=== PATIENT | male | born 1985 | race Two or more races ===

== ENCOUNTER 2020-10-15 08:59 | Inpatient (IN) | payer OTHER, MEDICAID ==
[~2020-10-15] VITALS: Ht 167.6 cm; Wt 124.0 kg
--- NOTE | 2020-10-15 09:26 | NUR ---
INITINAL CONTACT WITH PT: PT W/C/ N/V/D and stomach pain x3 days. Subjective fever and chills last night. STEADY GAIT TO BED. ATTACHED TO MONITORS. VSS. APRIL. DR. ROWE EVALUATED.
[2020-10-15] MEDS ORDERED: ONDANSETRON 2MG/ML, 2ML ONE (09:28)
[2020-10-15] MEDS ORDERED: SODIUM CHLORIDE FLUSH 10ML SYR IVF ONE (09:30)
[2020-10-15] MEDS ORDERED: SODIUM CHLORIDE 0.9% 1,000ML IVBOLUS ONE ×2 (09:30→11:30)
[2020-10-15] MEDS ORDERED: ONDANSETRON 2MG/ML, 2ML IVPush ONE (09:30)
[2020-10-15 09:40] LABS: MEAN CORPUSCULAR HEMOGLOBIN 30.2 pg (27.5-34.5); MEAN CORPUSCULAR HGB CONC 34.6 g/dL (33.2-36.2); MEAN PLATELET VOLUME 7.9 fL (7.4-10.4); PLATELET COUNT 227 x10^3/uL (130-400); RED BLOOD COUNT 5.65 x10^6/uL (4.38-5.82); RED CELL DISTRIBUTION WIDTH 13.8 % (9.4-14.8)
[2020-10-15 09:44] LABS: ALBUMIN 4.1 g/dL (3.4-5.0); ANION GAP 8 mmol/L (5-15); CHLORIDE 105 mmol/L (98-107)
[2020-10-15 09:49] LABS: ALANINE AMINOTRANSFERASE 37 U/L (12-78); ALKALINE PHOSPHATASE 89 U/L (45-117); BILIRUBIN,TOTAL 0.8 mg/dL (0.2-1.0); CREATININE 1.05 mg/dL (0.7-1.3); TOTAL PROTEIN 8.3 g/dL (6.4-8.2)
[2020-10-15 09:56] LABS: MICROSCOPIC INDICATED
[2020-10-15 10:08] LABS: <PLATELET ESTIMATE> ADEQUATE; <PLT MORPHOLOGY> NORMAL PLT MORPH; <RBC MORPHOLOGY> NORMAL; BAND#(MANUAL) 6.32 x10^3/uL; BANDS%(MANUAL) 34 % (0-7); LYMPH#(MANUAL) 0.93 x10^3/uL (1-3.4); LYMPHS% (MANUAL) 5 % (22-44); MONOS#(MANUAL) 0.56 x10^3/uL (0.3-2.7); MONOS% (MANUAL) 3 % (2-9); SEG#(MANUAL) 10.79 x10^3/uL (1.8-6.8); SEGS% (MANUAL) 58 % (42-75)
--- NOTE | 2020-10-15 11:26 | NUR ---
PT UP TO BATHROOM WITH STEADY GAIT. BACK TO BED. VSS. NADN. PT MEDICATED PER EMAR. STOOL WALKED DOWN TO LAB.
--- NOTE | 2020-10-15 11:55 | NUR ---
PT TO CT.
[2020-10-15] MEDS ORDERED: OMNIPAQUE 350 MG/ML, 100ML BOTTLE ONE ×3 (12:14→23:35)
[2020-10-15] MEDS ORDERED: KETOROLAC 30 MG/1 ML ONE (12:24)
[2020-10-15] MEDS ORDERED: KETOROLAC 30 MG/1 ML IVPush ONE (12:30)
[2020-10-15] MEDS ORDERED: CEFTRIAXONE 1,000 MG in DEXTROSE 5% 50 ML IVPB ONE (13:00)
[2020-10-15] MEDS ORDERED: METRONIDAZOLE PMX 500MG/100ML 100 ML ONE (13:06)
[2020-10-15] MEDS ORDERED: ACETAMINOPHEN 500 MG TABLET PO ONE (13:30)
[2020-10-15] MEDS ORDERED: MORPHINE SULFATE 4 MG/ML, 1ML IVPush ONE (13:30)
[2020-10-15] MEDS ORDERED: ACETAMINOPHEN 500 MG TABLET ONE (13:31)
[2020-10-15 13:56] LABS: CLOSTRIDIUM DIFFICILE ANTIGEN NEGATIVE; CLOSTRIDIUM DIFFICILE TOXIN NEGATIVE (Negative); CRYPTOSPORIDIUM ANTIGEN Negative (Negative)
[2020-10-15] MEDS ORDERED: METRONIDAZOLE PMX 500MG/100ML 100 ML IV ONE (14:00)
[2020-10-15] MEDS ORDERED: ONDANSETRON 2MG/ML, 2ML IVPush PRN (14:30)
[2020-10-15] MEDS ORDERED: ONDANSETRON ODT 4 MG PO PRN (14:30)
[2020-10-15] MEDS ORDERED: LABETALOL 5MG/ML, 20ML IVPush PRN (14:30)
[2020-10-15] MEDS ORDERED: GUAIFENESIN/DM 200-20MG, 10ML UDC PO PRN (14:30)
[2020-10-15 14:55] VITALS: BP 131/85
[2020-10-15] MEDS ORDERED: ENALAPRILAT 1.25 MG/ML, 2ML IVPush PRN (15:00)
[2020-10-15] MEDS: HYDROcodone/APAP 5/325 TABLET PO PRN ×2 (15:04→21:49)
[2020-10-15] MEDS: SODIUM CHLORIDE 0.9% 1,000 ML IV SCH ×2 (15:10→22:58)
[2020-10-15] MEDS: METRONIDAZOLE PMX 500MG/100ML 100 ML IV SCH ×2 (15:10→22:57)
[2020-10-15 15:21] LABS: SEDIMENTATION RATE 7 mm/hr (0-10)
[2020-10-15] MEDS ORDERED: PARO40TA3 PO (16:04)
[2020-10-15 19:11] VITALS: BP 126/84
[2020-10-15] MEDS: ENOXAPARIN 40 MG/0.4 ML SQ SCH (20:08)
[2020-10-15] MEDS: ACETAMINOPHEN 325 MG TABLET PO PRN (20:08)
[2020-10-16 00:32] VITALS: BP 108/69
[2020-10-16] MEDS: HYDROcodone/APAP 5/325 TABLET PO PRN ×4 (04:40→18:39)
[2020-10-16 05:09] LABS: BASOPHILS % (AUTO) 0 % (0-1); EOSINOPHILS % (AUTO) 0 % (1-7); LYMPHOCYTES % (AUTO) 15 % (22-44); MEAN CORPUSCULAR HEMOGLOBIN 30.4 pg (27.5-34.5); MEAN CORPUSCULAR HGB CONC 34.3 g/dL (33.2-36.2); MEAN PLATELET VOLUME 7.9 fL (7.4-10.4); MONOCYTES % (AUTO) 7 % (2-9); NEUTROPHILS % (AUTO) 78 % (42-75); PLATELET COUNT 183 x10^3/uL (130-400); RED BLOOD COUNT 4.97 x10^6/uL (4.38-5.82); RED CELL DISTRIBUTION WIDTH 13.9 % (9.4-14.8)
[2020-10-16 05:21] LABS: ALBUMIN 3.1 g/dL (3.4-5.0); ANION GAP 6 mmol/L (5-15); CALCIUM 7.7 mg/dL (8.5-10.1); CHLORIDE 106 mmol/L (98-107)
[2020-10-16 05:24] LABS: ALANINE AMINOTRANSFERASE 30 U/L (12-78); ALKALINE PHOSPHATASE 72 U/L (45-117); BILIRUBIN,TOTAL 0.5 mg/dL (0.2-1.0); CREATININE 0.91 mg/dL (0.7-1.3); TOTAL PROTEIN 6.9 g/dL (6.4-8.2)
[2020-10-16 07:06] VITALS: BP 123/81
[2020-10-16] MEDS: METRONIDAZOLE PMX 500MG/100ML 100 ML IV SCH ×2 (07:37→16:17)
[2020-10-16] MEDS: ACETAMINOPHEN 325 MG TABLET PO PRN (07:37)
[2020-10-16] MEDS: SODIUM CHLORIDE 0.9% 1,000 ML IV SCH ×2 (07:38→16:17)
[2020-10-16] MEDS ORDERED: POTASSIUM CHLORIDE 20 MEQ TAB.ER.PRT PO ONE (08:00)
[2020-10-16] MEDS: K-PHOS NEUTRAL 250MG TAB PO SCH ×2 (09:14→20:33)
[2020-10-16] MEDS ORDERED: CEFTRIAXONE 1,000 MG in DEXTROSE 5% 50 ML IVPB SCH (13:00)
[2020-10-16 13:02] VITALS: BP 119/76
[2020-10-16] MEDS: LEVOFLOXACIN 750 MG TABLET PO SCH (17:45)
[2020-10-16] MEDS: ENOXAPARIN 40 MG/0.4 ML SQ SCH (18:36)
[2020-10-16 19:27] VITALS: BP 114/76
[2020-10-16] MEDS ORDERED: MELATONIN 5 MG TABLET PO PRN (22:00)
[2020-10-17 01:20] VITALS: BP 110/74
[2020-10-17] MEDS: SODIUM CHLORIDE 0.9% 1,000 ML IV SCH ×2 (02:06→10:33)
[2020-10-17 04:57] LABS: BASOPHILS % (AUTO) 0 % (0-1); EOSINOPHILS % (AUTO) 3 % (1-7); LYMPHOCYTES % (AUTO) 27 % (22-44); MEAN CORPUSCULAR HEMOGLOBIN 30.2 pg (27.5-34.5); MEAN CORPUSCULAR HGB CONC 34.4 g/dL (33.2-36.2); MEAN PLATELET VOLUME 7.9 fL (7.4-10.4); MONOCYTES % (AUTO) 10 % (2-9); NEUTROPHILS % (AUTO) 61 % (42-75); PLATELET COUNT 157 x10^3/uL (130-400); RED BLOOD COUNT 4.42 x10^6/uL (4.38-5.82); RED CELL DISTRIBUTION WIDTH 13.9 % (9.4-14.8)
[2020-10-17 05:08] LABS: ANION GAP 7 mmol/L (5-15); CALCIUM 7.5 mg/dL (8.5-10.1); CHLORIDE 110 mmol/L (98-107); CREATININE 0.65 mg/dL (0.7-1.3)
[2020-10-17] MEDS: HYDROcodone/APAP 5/325 TABLET PO PRN (05:32)
[2020-10-17 07:25] VITALS: BP 123/84
[2020-10-17] MEDS ORDERED: POTASSIUM CHLORIDE 20 MEQ TAB.ER.PRT PO ONE (08:00)
[2020-10-17] MEDS: K-PHOS NEUTRAL 250MG TAB PO SCH (09:01)
[2020-10-17] MEDS: LEVOFLOXACIN 750 MG TABLET PO SCH (09:35)
[2020-10-17] MEDS ORDERED: CIPR500T87 PO (10:58)
[2020-10-17] MEDS ORDERED: METR500T PO (10:58)
== END 2020-10-17 12:30 | disposition home or self-care (01) | DRG 872 ==
LOC: ED 09:53 → 3N 13:25 → ED 13:25 → 3N 14:23 → DCLOUNGE 10-17 12:24
PROVIDERS: ADMIT Internal Medicine; ATTEND Internal Medicine
DX: A41.9 Sepsis, unspecified organism (principal); A09 Infectious gastroenteritis and colitis, unspecified; Z68.41 Body mass index [BMI] 40.0-44.9, adult; K51.00 Ulcerative (chronic) pancolitis without complications; E66.01 Morbid (severe) obesity due to excess calories; I10 Essential (primary) hypertension; E87.6 Hypokalemia; E83.39 Other disorders of phosphorus metabolism; Z87.891 Personal history of nicotine dependence; Z88.0 Allergy status to penicillin
CPT/HCPCS: 36415; 71045; 71275; 74174; 74177; 80048; 80053; 81001; 83605; 83690; 83735; 84100; 84145; 85025; 85379; 85651; 86140; 87040; 87046; 87077; 87252; 87324; 87328; 87329; 87427; 93005; 96361; 96374; 96375; G0378; J0696; J1650; J1885; J2405; Q9967; J7030